=== PATIENT | male | born 1995 | race Two or more races ===

== ENCOUNTER 2020-03-27 02:19 | Emergency (ER) | payer MEDICAID, OTHER ==
[~2020-03-27] VITALS: Ht 190.5 cm; Wt 79.8 kg
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
--- NOTE | 2020-03-27 02:46 | NUR ---
BIOLOGY INTERN AT BED SIDE
--- NOTE | 2020-03-27 03:23 | NUR ---
Pt ok to discharge per Dr Woods. Brother at er to drive patient home. Patient discharged to home in stable condition. Written and verbal after care instructions given. Patient verbalizes understanding of instruction.Patient is awake and alert to self, day, and place. Pt ambulatory with a steady gait
[2020-03-27 03:24] VITALS: BP 122/76
== END 2020-03-27 03:25 | disposition home or self-care (01) ==
LOC: ER 02:20
DX: S20.212A Contusion of left front wall of thorax, initial encounter (principal); M25.532 Pain in left wrist; W18.39XA Other fall on same level, initial encounter; Y93.89 Activity, other specified; Y92.89 Other specified places as the place of occurrence of the external cause; Y99.8 Other external cause status
CPT/HCPCS: 71111-TC; 73130-TC